=== PATIENT | female | born 1950 | race Caucasian/White ===

== ENCOUNTER 2020-10-18 18:01 | Emergency (ER) | payer MEDICARE ==
[~2020-10-18] VITALS: Ht 172.7 cm; Wt 100.0 kg
--- NOTE | 2020-10-18 18:45 | PHYS DOC ---
General Adult EDM: Chief Complaint: HAND PROBLEM HPI: HPI: Patient is a 70-year-old female coming in for left hand pain. Patient states the pain has been present for 2 days. Says she woke up with the pain denies any trauma. Patient also has redness and swelling to the back of her hand which she says has been there from 1 to 3 months after she says that she had rubbed Mr. Gudino cleaning solution on the back of her hands remove the surgical kenna. When asked what kind of surgery the patient had she is unable to recall. Patient seems limited in her ability to provide history. Patient states she takes acyclovir and levothyroxine, has not taken anything for pain. Patient points t he pain being centered over her fourth metacarpal and describes as a burning pain. Denies any numbness or paresthesia. Patient unable to recall if she had an IV placed in that hand within the last few months Review of Systems: Review of Systems: Constitutional: Denies fever or chills Eyes: Denies change in visual acuity HENT: Denies nasal congestion or sore throat Respiratory: Denies cough or shortness of breath Cardiovascular: Denies chest pain or edema GI: Denies abdominal pain, nausea, vomiting, bloody stools or diarrhea : Denies dysuria Musculoskeletal: Denies back pain or joint pain, describes left hand pain Integument: Erythema over dorsum of left hand Neurologic: Denies headache, focal weakness or sensory changes Endocrine: Denies polyuria or polydipsia Lymphatic: Denies swollen glands Psychiatric: Denies depression or anxiety Physical Exam: PE: Constitutional: Well developed, well nourished, no acute distress, non-toxic appearance. [] HENT: Normocephalic, atraumatic, bilateral external ears normal, oropharynx moist, no oral exudates, nose normal. [] Eyes: PERRLA, EOMI, conjunctiva normal, no discharge. [] Neck: Normal range of motion, no tenderness, supple, no stridor. [] Cardiovascular:Heart rate regular rhythm, no murmur [] Lungs & Thorax: Bilateral breath sounds clear to auscultation [] Abdomen: Bowel sounds normal, soft, no tenderness, no masses, no pulsatile masses. [] Skin: Warm, dry, no erythema, no rash. [] Back: No tenderness, no CVA tenderness. [] Extremities: No tenderness, no cyanosis, no clubbing, ROM intact, no edema. [] Neurologic: Alert and oriented X 3, normal motor function, normal sensory function, no focal deficits noted. [] Psychologic: Affect normal, judgement normal, mood normal. [] EKG: EKG: [] Radiology/Procedures: Radiology/Procedures: Exam: Left hand 3 views INDICATION: Pain, swelling. No trauma TECHNIQUE: Frontal, lateral and oblique views of the left hand Comparisons: None FINDINGS: Bone mineralization is normal. No acute or healed fractures. Soft tissues are unremarkable. Joint spaces are well-maintained. IMPRESSION: No acute osseous abnormality. [] Heart Score: Risk Factors: Risk Factors: DM, Current or recent (<one month) smoker, HTN, HLP, family history of CAD, obesity. Risk Scores: Score 0 - 3: 2.5% MACE over next 6 weeks - Discharge Home Score 4 - 6: 20.3% MACE over next 6 weeks - Admit for Clinical Observation Score 7 - 10: 72.7% MACE over next 6 weeks - Early Invasive Strategies Course & Med Decision Making: Course & Med Decision Making Pertinent Labs and Imaging studies reviewed. (See chart for details) Hand is red and warm to the touch, likely cellulitis [] Dragon Disclaimer: Dragon Disclaimer: This electronic medical record was generated, in whole or in part, using a voice recognition dictation system. Departure Departure: Impression: Primary Impression: Cellulitis of left hand excluding fingers and thumb Disposition: 01 DC HOME SELF CARE/HOMELESS Condition: STABLE Referrals: IRIS ORTEZ (PCP) Patient Instructions: Cellulitis, [facility] Cephalexin (CEPHALEXIN) 500 Mg Tablet 1 TAB PO TID for cellulitis for 7 Days, #21 TAB Prov: PEMA BOOKER MD 10/18/20 Naproxen (NAPROSYN) 500 Mg Tablet 500 MG PO PRN Q12HR PRN for PAIN for 5 Days, #10 TAB Prov: PEMA BOOKER MD 10/18/20 PEMA BOOKER MD Oct 18, 2020 18:45
--- NOTE | 2020-10-18 19:24 | RAD ---
Exam: Left hand 3 views INDICATION: Pain, swelling. No trauma TECHNIQUE: Frontal, lateral and oblique views of the left hand Comparisons: None FINDINGS: Bone mineralization is normal. No acute or healed fractures. Soft tissues are unremarkable. Joint spa stefany are well-maintained. IMPRESSION: No acute osseous abnormality. Electronically signed by: Pricilla Askew MD (10/18/2020 7:22 PM) NOEL
[2020-10-18 19:40] LABS: BASO % 0 % (0-3); EOS # 0.5 x10^3/uL (0.0-0.7); EOS % 6 % (0-3); HEMATOCRIT 44.4 % (36.0-47.0); HEMOGLOBIN 14.7 g/dL (12.0-15.5); LYMPH # 1.7 x10^3/uL (1.0-4.8); LYMPH % 19 % (24-48); MEAN CORPUSCULAR HEMOGLOBIN 32 pg (25-35); MEAN CORPUSCULAR HGB CONC 33 g/dL (31-37); MEAN CORPUSCULAR VOLUME 96 fL (79-100); MONO # 0.9 x10^3/uL (0.0-1.1); MONO % 10 % (0-9); NEUT # 5.5 x10^3uL (1.8-7.7); NEUT % 64 % (31-73); PLATELET COUNT 184 x10^3/uL (140-400); RED CELL DISTRIBUTION WIDTH 13.8 % (11.5-14.5); WHITE BLOOD COUNT 8.6 x10^3/uL (4.0-11.0)
[2020-10-18 19:47] LABS: CALCIUM 9.1 mg/dL (8.5-10.1); CREATININE 1.1 mg/dL (0.6-1.0); GFR 49.1; POTASSIUM 4.2 mmol/L (3.5-5.1)
[2020-10-18 19:52] LABS: ALBUMIN 3.4 g/dL (3.4-5.0); ALBUMIN/GLOBULIN RATIO 0.9 (1.0-1.7); C REACTIVE PROTEIN 3.9 mg/L (0-3.3); TOTAL BILIRUBIN 0.2 mg/dL (0.2-1.0); TOTAL PROTEIN 7.1 g/dL (6.4-8.2)
[2020-10-18 20:15] VITALS: BP 136/76
[2020-10-18] MEDS ORDERED: CEPH500T PO (20:26)
[2020-10-18] MEDS ORDERED: NAPR-683 PO (20:26)
[2020-10-18] MEDS ORDERED: CEPHALEXIN 250 MG CAPSULE PO ONE (20:30)
== END 2020-10-18 20:45 | disposition home or self-care (01) ==
LOC: ER 18:01
DX: L03.114 Cellulitis of left upper limb (principal)
CPT/HCPCS: 36415; 73130; 80053; 83605; 85025; 85379; 86140; 96374; 99284; J3010; 85651